=== PATIENT | female | born 1950 | race Two or more races ===

== ENCOUNTER 2025-07-29 12:32 | Outpatient (CLI) | payer OTHER ==
[2025-07-29 14:14] LABS: Microalb/Creat Ratio, Urine 703.0
[2025-07-31 11:13] LABS: Hematocrit 39.7 % (36.0-46.0); Hemoglobin 12.5 g/dL (12.2-16.2); Mean Corpuscular Hemoglobin 26.8 pg (28.0-32.0); Mean Corpuscular Volume 85.0 fL (80.0-100.0); Nucleated Red Blood Cells % 0.0 %
== END 2025-07-29 17:00 | disposition home or self-care (01) ==
LOC: LAB 12:32
PROVIDERS: ATTEND Internal Medicine
DX: E11.65 Type 2 diabetes mellitus with hyperglycemia (principal); E78.00 Pure hypercholesterolemia, unspecified
CPT/HCPCS: 36415; 82043; 82570; 83036; 85025